=== PATIENT | female | born 1975 | race Caucasian/White ===

== ENCOUNTER 2016-03-08 15:12 | Outpatient (CLI) | payer MEDICAID | END 2016-03-08 15:13 | disposition home or self-care (01) | DX: M17.11 Unilateral primary osteoarthritis, right knee (principal) ==

== ENCOUNTER 2016-08-24 15:00 | Outpatient (CLI) | payer MEDICAID ==
[2016-08-24 19:13] LABS: BASOPHILS % (AUTO) 0.7 %; EOSINOPHILS # (AUTO) 0.1 10^3/uL (0.0-0.7); EOSINOPHILS % (AUTO) 2.2 %; HCT - HEMATOCRIT 41.4 % (37.0-47.0); HGB - HEMOGLOBIN 13.9 g/dL (12.0-16.0); LYMPHOCYTES # (AUTO) 1.3 10^3/uL (1.5-3.5); LYMPHOCYTES % (AUTO) 22.4 %; MEAN CORPUSCULAR HEMOGLOBIN 30.4 pg (27.0-31.0); MEAN CORPUSCULAR HGB CONC 33.6 g/dL (32.0-36.0); MEAN CORPUSCULAR VOLUME 90.4 fL (81.0-99.0); MEAN PLATELET VOLUME 8.4 fL (7.9-10.8); MONOCYTES # (AUTO) 0.3 10^3/uL (0.0-1.0); MONOCYTES % (AUTO) 5.7 %; NEUTROPHILS # (AUTO) 4.1 10^3/uL (1.5-6.6); RED BLOOD COUNT 4.57 10^6/uL (4.20-5.40); RED CELL DISTRIBUTION WIDTH 13.2 % (12.0-15.0)
[2016-08-24 19:49] LABS: ALBUMIN/GLOBULIN RATIO 1.3 (1.0-2.2); BUN - BLOOD UREA NITROGEN 19 mg/dL (6-20); CALCIUM 9.2 mg/dL (8.5-10.3); CARBON DIOXIDE - CO2 26 mmol/L (21-32); CHLORIDE 104 mmol/L (101-111); CHOL/HDL RATIO 4.8 (<4.4); CHOLESTEROL 197 mg/dL; CREATININE 0.9 mg/dL (0.4-1.0); GFR - MDRD 70 (>89); GLUCOSE 89 mg/dL (70-100); HDL CHOLESTEROL 41 mg/dL; LDL/HDL RATIO 3.2 (<4.4); SODIUM 139 mmol/L (135-145); TOTAL PROTEIN 7.2 g/dL (6.7-8.2); TRIGLYCERIDES 117 mg/dL; VLDL CHOLESTEROL 23 mg/dL
[2016-08-24 20:36] LABS: HEMOGLOBIN A1C 0.49 g/dL
== END 2016-08-24 15:01 | disposition home or self-care (01) ==
LOC: LAB.N 15:00
PROVIDERS: ATTEND Nurse Practitioner Gerontology
DX: Z13.9 Encounter for screening, unspecified (principal)
CPT/HCPCS: 36415; 80053; 80061; 83036; 84443; 85025

== ENCOUNTER 2017-03-28 15:45 | Outpatient (CLI) | payer MEDICAID | END 2017-03-28 15:46 | disposition home or self-care (01) | LOC: DI 15:45 | PROVIDERS: ATTEND Nurse Practitioner Gerontology | DX: Z53.9 Procedure and treatment not carried out, unspecified reason (principal) ==

== ENCOUNTER 2017-08-19 14:53 | Outpatient (CLI) | payer MEDICAID | END 2017-08-19 14:54 | disposition home or self-care (01) | LOC: SC 14:53 | PROVIDERS: ATTEND Internal Medicine Pulmonary Disease | DX: G47.30 Sleep apnea, unspecified (principal); G47.10 Hypersomnia, unspecified; R06.83 Snoring; G47.8 Other sleep disorders; E66.9 Obesity, unspecified; Z68.43 Body mass index [BMI] 50.0-59.9, adult | CPT/HCPCS: 99203; 99212 ==

== ENCOUNTER 2017-10-07 14:43 | Outpatient (CLI) | payer MEDICAID | END 2017-10-07 14:44 | disposition home or self-care (01) | LOC: SC 14:43 | PROVIDERS: ATTEND Internal Medicine Pulmonary Disease | DX: G47.33 Obstructive sleep apnea (adult) (pediatric) (principal) | CPT/HCPCS: 99212; 99213 ==

== ENCOUNTER 2017-12-10 10:16 | Outpatient (CLI) | payer MEDICAID | END 2017-12-10 10:17 | disposition home or self-care (01) | LOC: SC 10:16 | PROVIDERS: ATTEND Nurse Practitioner Family | DX: G47.33 Obstructive sleep apnea (adult) (pediatric) (principal) | CPT/HCPCS: 99212; 99214 ==

== ENCOUNTER 2018-01-06 13:28 | Outpatient (CLI) | payer MEDICAID | END 2018-01-06 13:29 | disposition home or self-care (01) | LOC: SC 13:28 | PROVIDERS: ATTEND Nurse Practitioner Family | DX: G47.33 Obstructive sleep apnea (adult) (pediatric) (principal) | CPT/HCPCS: 99212; 99213 ==

== ENCOUNTER 2018-04-05 10:12 | Outpatient (CLI) | payer MEDICAID ==
--- NOTE | 2018-04-06 16:01 | Ultrasound Report ---
Reason: ABDOMINAL PAIN Procedure Date: 04/05/2018 Accession Number: [id number] / [id number] Procedure: US - Abdomen Complete CPT Code: FULL RESULT: EXAM: ABDOMEN ULTRASOUND EXAM DATE: 04/05/2018 10:43 AM. CLINICAL HISTORY: ABDOMINAL PAIN. COMPARISON: None. TECHNIQUE: Real-time scanning was performed with static images obtained. FINDINGS: Liver: The parenchyma is echogenic diffusely. No definite focal masses are identified, but evaluation is limited secondary to the echogenicity. The right lobe of the liver measures up to 15.3 cm. Main portal vein flow: Hepatopetal. Gallbladder: The gallbladder is irregular and heterogeneous. At least one shadowing gallstone is clearly seen. There is hypoechoic material filling the fundus of the gallbladder. It is not clear whether this represents sludge or a solid mass. No definite gallbladder wall thickening. Biliary System: Common bile duct measures 4.6 mm. No intrahepatic or extrahepatic ductal dilatation. Pancreas: Visualization is limited by overlying bowel gas. Kidneys: Right: 9.8 cm longitudinally. Normal. No contour-deforming mass, stones, or hydronephrosis. Left: 9.9 cm longitudinally. Normal. No contour-deforming mass, stones, or hydronephrosis. There is a prominent column of Marlon, a normal variant. Spleen: 16.6 x 9.4 x 7.1 splenomegaly is present. Normal echotexture with no focal abnormality identified. Aorta and Inferior Vena Cava: Unremarkable. Other: None. IMPRESSION: 1. Heterogeneous, irregular gallbladder. At least one shadowing stone is visualized. There is hypoechoic material filling the fundus which may represent sludge or solid mass. No vascularity identified. No evidence of acute cholecystitis. Recommend further evaluation with MRCP or contrast-enhanced CT. Consider surgical consult. 2. Fatty infiltrated liver. 3. Splenomegaly. [facility]
== END 2018-04-05 10:13 | disposition home or self-care (01) ==
LOC: DI 10:12
PROVIDERS: ATTEND Nurse Practitioner Gerontology
DX: K80.20 Calculus of gallbladder without cholecystitis without obstruction (principal); K76.0 Fatty (change of) liver, not elsewhere classified; R16.1 Splenomegaly, not elsewhere classified
CPT/HCPCS: 76700

== ENCOUNTER 2018-06-26 13:11 | Outpatient (CLI) | payer MEDICAID ==
[2018-06-26] MEDS ORDERED: IOVERSOL 320 100 ML VIAL IVP ONE ×2 (13:34→15:25)
[2018-06-26] MEDS ORDERED: IOVERSOL 320 50 ML VIAL ONE (13:35)
[2018-06-26] MEDS ORDERED: IOVERSOL 320 50 ML VIAL PO ONE (15:26)
--- NOTE | 2018-06-27 03:48 | CT Report ---
Reason: ABNORMAL GB ON ULTRASOUND Procedure Date: 06/26/2018 Accession Number: [id number] / [id number] Procedure: CT - Abdomen/Pelvis W CPT Code: FULL RESULT: EXAM: CT ABDOMEN AND PELVIS EXAM DATE: 06/26/2018 03:23 PM. CLINICAL HISTORY: Abnormal appearance of the gallbladder on the prior ultrasound, further assessment and characterization. COMPARISONS: ABDOMEN COMPLETE 04/05/2018 10:43 AM. TECHNIQUE: Routine helical CT imaging was performed through the abdomen and pelvis. IV contrast: 100 mL Optiray 320. Enteric contrast: Present. Reconstructions: Coronal and sagittal. In accordance with CT protocol optimization, one or more of the following dose reduction techniques were utilized for this exam: automated exposure control, adjustment of mA and/or KV based on patient size, or use of iterative reconstructive technique. FINDINGS: ABDOMEN: Liver: Moderate hepatic steatosis and at least mild to moderate hepatomegaly. Stomach/Distal Esophagus: No significant abnormality. Gallbladder: The gallbladder is small, contracted and lobular in configuration. It is filled with intermediate density material. Bile Ducts: No significant abnormality. Pancreas: No significant abnormality. Spleen: Moderate to severe splenic enlargement. Kidneys: No suspicious solid appearing lesion. No hydronephrosis. Adrenals: No significant abnormality. Bowel: No obstruction. Average fecal residual. Appendix: Could not be seen with certainty. Lymph Nodes: No pathologically enlarged nodes. Vasculature: Normal caliber aorta. Fluid: Trace ascites. Abdominal Wall: There is a very large midline umbilical hernia containing fat as well as ascites fluid. Skin thickening of the anteroinferior abdominal pannus with subcutaneous stranding. Other: No significant abnormality. PELVIS: Uterus and Ovaries: No significant abnormality. Bladder: No significant abnormality. Lymph Nodes: No pathologically enlarged nodes. Fluid: No significant free fluid. Other: None. BONES: No suspicious bony lesions. Multilevel degenerative change within the spine. LOWER CHEST: No significant consolidation or effusion. IMPRESSION: 1. No acute abdominal or pelvic abnormality. 2. Contracted gallbladder, with multilobular configuration. It is filled with intermediate density material, likely sludge and stones. Chronic cholecystitis difficult to exclude with certainty. 3. There is no pathologic biliary ductal dilation. 4. Severe splenic enlargement. Moderate hepatic steatosis and hepatomegaly. 5. There is no evidence of bowel obstruction. 6. There is a large umbilical hernia containing fat as well as ascites fluid. [facility]
== END 2018-06-26 13:12 | disposition home or self-care (01) ==
LOC: DI 13:11
PROVIDERS: ATTEND Surgery
DX: K82.0 Obstruction of gallbladder (principal); R16.2 Hepatomegaly with splenomegaly, not elsewhere classified; K76.0 Fatty (change of) liver, not elsewhere classified; K42.9 Umbilical hernia without obstruction or gangrene; R18.8 Other ascites
CPT/HCPCS: 74177; Q9967

== ENCOUNTER 2018-11-25 14:59 | Outpatient (CLI) | payer MEDICAID ==
[2018-11-25 18:51] LABS: BASOPHILS % (AUTO) 1.1 %; EOSINOPHILS % (AUTO) 1.5 %; HGB - HEMOGLOBIN 12.3 g/dL (12.0-16.0); LYMPHOCYTES # (AUTO) 0.7 10^3/uL (1.5-3.5); LYMPHOCYTES % (AUTO) 26.8 %; MEAN CORPUSCULAR HEMOGLOBIN 32.9 pg (27.0-31.0); MEAN CORPUSCULAR HGB CONC 32.5 g/dL (32.0-36.0); MEAN CORPUSCULAR VOLUME 101.1 fL (81.0-99.0); MEAN PLATELET VOLUME 10.5 fL (7.9-10.8); MONOCYTES # (AUTO) 0.2 10^3/uL (0.0-1.0); MONOCYTES % (AUTO) 6.4 %; NEUTROPHILS # (AUTO) 1.7 10^3/uL (1.5-6.6); NEUTROPHILS % (AUTO) 63.4 %; PLT - PLATELET COUNT 109 10^3/uL (130-450); RED BLOOD COUNT 3.74 10^6/uL (4.20-5.40); RED CELL DISTRIBUTION WIDTH 13.6 % (12.0-15.0); WHITE BLOOD COUNT 2.7 x10^3/uL (4.8-10.8)
[2018-11-25 20:14] LABS: ALBUMIN 3.5 g/dL (3.2-5.5); ALBUMIN/GLOBULIN RATIO 1.2 (1.0-2.2); ALKALINE PHOSPHATASE 194 IU/L (42-121); ALT ALANINE AMINOTRANSFERASE 46 IU/L (10-60); AST ASPARTATE AMINOTRANSFERASE 71 IU/L (10-42); BILIRUBIN,TOTAL 2.7 mg/dL (0.2-1.0); BUN - BLOOD UREA NITROGEN 10 mg/dL (6-20); CARBON DIOXIDE - CO2 25 mmol/L (21-32); CHLORIDE 105 mmol/L (101-111); CHOL/HDL RATIO 4.3 (<4.4); CHOLESTEROL 176 mg/dL; CREATININE 0.7 mg/dL (0.4-1.0); GFR - MDRD 92 (>89); GLUCOSE 94 mg/dL (70-100); HDL CHOLESTEROL 41 mg/dL; LDL CHOLESTEROL,CALCULATED 122 mg/dL; SODIUM 138 mmol/L (135-145); TOTAL PROTEIN 6.5 g/dL (6.7-8.2); VLDL CHOLESTEROL 13 mg/dL
[2018-11-25 20:16] LABS: DIFFERENTIAL COMMENT MANUAL=AUTO DIFF; PLATELET ESTIMATE, MANUAL DECREASED (<130,000) (NORMAL); PLATELET MORPHOLOGY NORMAL APPEARANCE (NORMAL); RBC MORPHOLOGY (MULTIPLE) NORMAL APPEARANCE (NORMAL)
== END 2018-11-25 15:10 | disposition home or self-care (01) ==
LOC: LAB.N 14:59
PROVIDERS: ATTEND Nurse Practitioner Gerontology
DX: I10 Essential (primary) hypertension (principal); Z13.9 Encounter for screening, unspecified; R74.8 Abnormal levels of other serum enzymes
CPT/HCPCS: 36415; 80053; 80061; 83721; 84443; 85025

== ENCOUNTER 2019-04-07 13:58 | Outpatient (CLI) | payer MEDICAID ==
[2019-04-07 18:55] LABS: EOSINOPHILS % (AUTO) 1.4 %; HGB - HEMOGLOBIN 10.5 g/dL (12.0-16.0); LYMPHOCYTES # (AUTO) 0.6 10^3/uL (1.5-3.5); LYMPHOCYTES % (AUTO) 19.7 %; MEAN CORPUSCULAR HEMOGLOBIN 35.7 pg (27.0-31.0); MEAN CORPUSCULAR HGB CONC 32.8 g/dL (32.0-36.0); MEAN CORPUSCULAR VOLUME 108.8 fL (81.0-99.0); MEAN PLATELET VOLUME 10.9 fL (7.9-10.8); MONOCYTES # (AUTO) 0.2 10^3/uL (0.0-1.0); MONOCYTES % (AUTO) 7.6 %; NEUTROPHILS % (AUTO) 69.3 %; PLT - PLATELET COUNT 116 10^3/uL (130-450); RED BLOOD COUNT 2.94 10^6/uL (4.20-5.40); WHITE BLOOD COUNT 2.9 x10^3/uL (4.8-10.8)
[2019-04-07 19:21] LABS: % IRON SATURATION 53 % (20-50); ALBUMIN/GLOBULIN RATIO 0.9 (1.0-2.2); ALKALINE PHOSPHATASE 138 IU/L (42-121); ALT ALANINE AMINOTRANSFERASE 44 IU/L (10-60); AMYLASE 36 U/L (28-100); AST ASPARTATE AMINOTRANSFERASE 113 IU/L (10-42); BILIRUBIN,TOTAL 14.3 mg/dL (0.2-1.0); BUN - BLOOD UREA NITROGEN 12 mg/dL (6-20); CALCIUM 8.5 mg/dL (8.5-10.3); CARBON DIOXIDE - CO2 22 mmol/L (21-32); CHLORIDE 101 mmol/L (101-111); CHOL/HDL RATIO 25.1 (<4.4); CHOLESTEROL 201 mg/dL; CREATININE 0.6 mg/dL (0.4-1.0); GFR - MDRD 110 (>89); GLUCOSE 99 mg/dL (70-100); HDL CHOLESTEROL 8 mg/dL; IRON 124 ug/dL (28-170); LDL CHOLESTEROL,CALCULATED 162 mg/dL; LDL/HDL RATIO 20.3 (<4.4); LIPASE 28 U/L (22-51); SODIUM 134 mmol/L (135-145); TOTAL IRON BINDING CAPACITY 232 ug/dL (250-450); TOTAL PROTEIN 6.4 g/dL (6.7-8.2); TRANSFERRIN 166 mg/dL (192-382); VLDL CHOLESTEROL 31 mg/dL
[2019-04-07 19:45] LABS: INR 1.4 (0.8-1.2); PT - PROTHROMBIN TIME 15.6 secs (9.9-12.6)
[2019-04-07 20:00] LABS: PARTIAL THROMBOPLASTIN TIME 38.3 secs (24.9-33.3)
[2019-04-07 20:02] LABS: PLATELET ESTIMATE, MANUAL DECREASED (<130,000) (NORMAL); PLATELET MORPHOLOGY NORMAL APPEARANCE (NORMAL)
[2019-04-07 20:03] LABS: RBC MORPHOLOGY (MULTIPLE) 1+ MACROCYTOSIS (NORMAL)
[2019-04-08 12:38] LABS: HEPATITIS C ANTIBODY NON-REACTIVE (NON-REACTIVE)
== END 2019-04-07 23:59 | disposition home or self-care (01) ==
LOC: LAB.N 13:58
PROVIDERS: ATTEND Nurse Practitioner Gerontology
DX: R17 Unspecified jaundice (principal); K76.0 Fatty (change of) liver, not elsewhere classified; K70.30 Alcoholic cirrhosis of liver without ascites
CPT/HCPCS: 36415; 80053; 80061; 82150; 83540; 83690; 83721; 84466; 85025; 85610; 85730; 86704; 86709; 86803

== ENCOUNTER 2019-04-21 15:04 | Outpatient (CLI) | payer MEDICAID ==
[2019-04-21 19:22] LABS: ALBUMIN 3.1 g/dL (3.2-5.5); ALBUMIN/GLOBULIN RATIO 0.9 (1.0-2.2); CALCIUM 8.7 mg/dL (8.5-10.3); CREATININE 0.6 mg/dL (0.4-1.0); TOTAL PROTEIN 6.7 g/dL (6.7-8.2)
== END 2019-04-21 23:59 | disposition home or self-care (01) ==
LOC: LAB.N 15:04
PROVIDERS: ATTEND Nurse Practitioner Gerontology
DX: K76.0 Fatty (change of) liver, not elsewhere classified (principal); K70.30 Alcoholic cirrhosis of liver without ascites
CPT/HCPCS: 36415; 80053

== ENCOUNTER 2019-04-30 11:58 | Outpatient (CLI) | payer MEDICAID ==
[2019-04-30 18:45] LABS: BASOPHILS % (AUTO) 1.2 %; EOSINOPHILS % (AUTO) 3.1 %; HGB - HEMOGLOBIN 10.2 g/dL (12.0-16.0); LYMPHOCYTES % (AUTO) 26.9 %; MEAN CORPUSCULAR HEMOGLOBIN 35.2 pg (27.0-31.0); MEAN CORPUSCULAR HGB CONC 32.6 g/dL (32.0-36.0); MEAN CORPUSCULAR VOLUME 107.9 fL (81.0-99.0); MONOCYTES % (AUTO) 7.3 %; NEUTROPHILS % (AUTO) 61.1 %; PLT - PLATELET COUNT 96 10^3/uL (130-450); WHITE BLOOD COUNT 2.6 x10^3/uL (4.8-10.8)
[2019-04-30 18:57] LABS: ABNORMAL LYMPHS % (MANUAL) 0 %; BAND NEUTROPHILS % (MANUAL) 0 %
[2019-04-30 20:07] LABS: DIFFERENTIAL COMMENT MANUAL DIFFERENTIAL; EOSINOPHILS # (MANUAL) 0.1 10^3/uL (0-0.7); LYMPHOCYTES # (MANUAL) 0.7 10^3/uL (1.5-3.5); LYMPHOCYTES % (MANUAL) 25 %; MONOCYTES # (MANUAL) 0.4 10^3/uL (0.0-1.0); PLATELET ESTIMATE, MANUAL DECREASED (<130,000) (NORMAL); PLATELET MORPHOLOGY NORMAL APPEARANCE (NORMAL); RBC MORPHOLOGY (MULTIPLE) 2+ MACROCYTOSIS (NORMAL)
== END 2019-04-30 23:59 | disposition home or self-care (01) ==
LOC: LAB.N 11:58
PROVIDERS: ATTEND Nurse Practitioner Gerontology
DX: D64.9 Anemia, unspecified (principal)
CPT/HCPCS: 36415; 85025

== ENCOUNTER 2019-05-12 16:41 | Outpatient (CLI) | payer MEDICAID ==
--- NOTE | 2019-05-13 09:01 | Ultrasound Report ---
Reason: ALCOHOLIC CIRRHOSIS OF LIVER WITH ASCITES Procedure Date: 05/12/2019 Accession Number: [id number] / [id number] Procedure: US - Abdomen Complete CPT Code: Final Report FULL RESULT: EXAM: ABDOMEN ULTRASOUND EXAM DATE: 05/12/2019 06:43 PM. CLINICAL HISTORY: Alcoholic cirrhosis of liver with ascites. COMPARISON: ABDOMEN COMPLETE 04/05/2018 10:43 AM. TECHNIQUE: Real-time scanning was performed with static images obtained. FINDINGS: Examination is markedly limited by body habitus. Liver: Within limitations of the acoustic window of the liver appears heterogeneous with nodular contour and subjectively small with demonstration of perihepatic ascites. This limits evaluation for underlying masses, no mass is detected. Maximum measured span is 15.5 cm. Main portal vein flow: Flow in the main portal vein is hepatopetal. The main portal vein is patent by color Doppler. Spectral Doppler examination in the right portal vein demonstrates expected waveform and patency. The splenic vein is patent near the pancreatic tail/splenic hilum and directed towards the liver. Image of incomplete color Doppler filling of the portal vein within the liver at a bend is felt to be technical in nature. Limited spectral Doppler interrogation of the hepatic artery demonstrates brisk arterial upstrokes and expected waveform. Limited interrogation of hepatic veins demonstrate normally directed flow towards the heart with patency by color Doppler. Gallbladder: Not adequately visualized due to poor acoustic windows, mild apparent wall thickening is felt to be due to perihepatic ascites. The gallbladder is not distended as seen. Biliary System: Biliary ductal system is not seen due to aforementioned limitations. Pancreas: Not seen due to poor acoustic windows. Kidneys: Both kidneys are limited in visualization, assessment is made within these limits: Right: 11.4 cm longitudinally. Normal. No contour-deforming mass, stones, or hydronephrosis. Left: 10.8 cm longitudinally. Normal. No contour-deforming mass, stones, or hydronephrosis. Spleen: Marked splenomegaly of up to 20 cm. Aorta and Inferior Vena Cava: Limited visualization of the upper abdominal aorta demonstrates normal caliber. Visualized IVC is unremarkable. Other: None. IMPRESSION: Limited study with cirrhotic configuration including perihepatic ascites and splenomegaly. Portal venous system is grossly appropriately directed and patent by color Doppler and spectral Doppler. [facility]
== END 2019-05-12 16:42 | disposition home or self-care (01) ==
LOC: DI 16:41
PROVIDERS: ATTEND Nurse Practitioner Gerontology
DX: K70.31 Alcoholic cirrhosis of liver with ascites (principal)
CPT/HCPCS: 76700; 93975

== ENCOUNTER 2019-05-19 08:00 | Outpatient (CLI) | payer MEDICAID ==
[2019-05-19 18:39] LABS: BASOPHILS % (AUTO) 0.5 %; EOSINOPHILS # (AUTO) 0.1 10^3/uL (0.0-0.7); EOSINOPHILS % (AUTO) 3.3 %; LYMPHOCYTES # (AUTO) 0.7 10^3/uL (1.5-3.5); LYMPHOCYTES % (AUTO) 18.5 %; MEAN CORPUSCULAR HEMOGLOBIN 35.5 pg (27.0-31.0); MEAN CORPUSCULAR HGB CONC 33.3 g/dL (32.0-36.0); MEAN CORPUSCULAR VOLUME 106.4 fL (81.0-99.0); MEAN PLATELET VOLUME 9.6 fL (7.9-10.8); MONOCYTES # (AUTO) 0.3 10^3/uL (0.0-1.0); NEUTROPHILS # (AUTO) 2.5 10^3/uL (1.5-6.6); NEUTROPHILS % (AUTO) 67.9 %; PLT - PLATELET COUNT 103 10^3/uL (130-450); RED BLOOD COUNT 2.82 10^6/uL (4.20-5.40); RED CELL DISTRIBUTION WIDTH 14.4 % (12.0-15.0); WHITE BLOOD COUNT 3.7 x10^3/uL (4.8-10.8)
[2019-05-19 18:47] LABS: INR 1.5 (0.8-1.2); PT - PROTHROMBIN TIME 16.2 secs (9.9-12.6)
[2019-05-19 19:00] LABS: ALBUMIN 2.8 g/dL (3.2-5.5); ALBUMIN/GLOBULIN RATIO 0.9 (1.0-2.2); BILIRUBIN,TOTAL 14.1 mg/dL (0.2-1.0); CALCIUM 8.4 mg/dL (8.5-10.3)
[2019-05-19 19:04] LABS: THYROID STIMULATING HORMONE 2.82 uIU/mL (0.34-5.60)
[2019-05-19 19:11] LABS: FERRITIN 364.6 ng/mL (11.0-306.8)
[2019-05-19 19:15] LABS: FOLATE 3.99 ng/mL (5.90 - >24.8)
[2019-05-20 10:35] LABS: HEPATITIS B SURFACE ANTIGEN NON-REACTIVE (NON-REACTIVE); HEPATITIS C ANTIBODY NON-REACTIVE (NON-REACTIVE)
== END 2019-05-19 23:59 | disposition home or self-care (01) ==
LOC: LAB.N 08:00
PROVIDERS: ATTEND Internal Medicine Gastroenterology
DX: K70.31 Alcoholic cirrhosis of liver with ascites (principal)
CPT/HCPCS: 36415; 80053; 81599; 82103; 82105; 82390; 82607; 82728; 82746; 83516; 83520; 83540; 84443; 85025; 85610; 86038; 86200; 86255; 86317; 86431; 86709; 86803; 87340; 87350

== ENCOUNTER 2019-05-29 09:30 | Outpatient (CLI) | payer MEDICAID ==
[2019-05-29 18:28] LABS: CALCIUM 8.7 mg/dL (8.5-10.3); CREATININE 0.9 mg/dL (0.4-1.0); MAGNESIUM 2.4 mg/dL (1.7-2.8); PHOSPHORUS 3.4 mg/dL (2.5-4.6)
== END 2019-05-29 23:59 | disposition home or self-care (01) ==
LOC: LAB.N 09:30
PROVIDERS: ATTEND Internal Medicine Gastroenterology
DX: K70.31 Alcoholic cirrhosis of liver with ascites (principal); K70.11 Alcoholic hepatitis with ascites; R25.2 Cramp and spasm; R60.0 Localized edema
CPT/HCPCS: 36415; 80048; 80074; 81599; 82306; 82746; 83735; 84100; 84207; 84255; 84425; 84630; 86803

== ENCOUNTER 2019-06-23 14:41 | Outpatient (CLI) | payer MEDICAID ==
[2019-06-23 17:48] LABS: ALBUMIN 2.4 g/dL (3.2-5.5); BILIRUBIN,DIRECT 8.6 mg/dL (0.1-0.5); BILIRUBIN,TOTAL 16.9 mg/dL (0.2-1.0); TOTAL PROTEIN 5.5 g/dL (6.7-8.2)
== END 2019-06-23 23:59 | disposition home or self-care (01) ==
LOC: LAB.WCP 14:41
PROVIDERS: ATTEND Internal Medicine Gastroenterology
DX: K70.30 Alcoholic cirrhosis of liver without ascites (principal); K76.0 Fatty (change of) liver, not elsewhere classified
CPT/HCPCS: 36415; 80076